=== PATIENT | male | born 1950 | race Caucasian/White ===

== ENCOUNTER 2023-04-10 15:04 | Emergency (ER) | payer MEDICARE, OTHER ==
[2023-04-10] MEDS ORDERED: ceFAZolin 1 GM in Sodium Chloride 0.9% 50 ML IV ONE (15:31)
[2023-04-10] MEDS ORDERED: Sodium Chloride 0.9% 10 ML Syringe FLUSH PRN (15:31)
[2023-04-10] MEDS ORDERED: Naloxone 0.4 MG/ML SDV IVPUSH PRN (15:33)
[2023-04-10] MEDS ORDERED: HYDROmorphone 0.5 MG/0.5 ML Syringe IVPUSH ONE (15:33)
[2023-04-10] MEDS ORDERED: Sodium Chloride 0.9% 500 ML IV ONE (15:42)
[2023-04-10 15:44] LABS: BASOPHILS ABSOLUTE AUTO 0.07 K/uL (0.00-0.10); BASOPHILS PERCENT AUTO 0.9 % (0.1-1.3); EOSINOPHILS ABSOLUTE AUTO 0.22 K/uL (0.00-0.40); EOSINOPHILS PERCENT AUTO 2.7 % (0.0-5.4); HEMATOCRIT 37.2 % (38.4-49.7); HEMOGLOBIN 12.6 g/dL (12.9-16.9); IMMATURE GRAN PERCENT AUTO 0.2 % (0.0-0.7); LYMPHOCYTES ABSOLUTE AUTO 1.88 K/uL (0.8-3.3); LYMPHOCYTES PERCENT AUTO 23.2 % (11.4-47.7); MEAN CORPUSCULAR HEMOGLOBIN 29.8 pg (31.6-35.5); MEAN CORPUSCULAR HGB CONC 33.9 g/dL (31.6-35.5); MEAN CORPUSCULAR VOLUME 87.9 fL (81.4-99.0); MONOCYTES ABSOLUTE AUTO 0.65 K/uL (0.20-0.90); NEUTROPHILS ABSOLUTE AUTO 5.28 K/uL (1.0-7.6); PLATELET COUNT,PLT 312 K/uL (130-375); RED BLOOD CELL COUNT 4.23 M/uL (4.14-5.76); WHITE BLOOD CELL COUNT,WBC 8.1 K/uL (3.2-11.0)
[2023-04-10 15:45] LABS: IMMATURE GRAN ABSOLUTE AUTO 0.02 K/uL (0.00-0.23)
[2023-04-10] MEDS ORDERED: Sodium Chloride 0.9% 1,000 ML IV SCH (15:45)
[2023-04-10] MEDS ORDERED: Diphtheria,Pertussis(Acell),Tetanus Vaccine 0.5 ML Syringe IM ONE (15:46)
[2023-04-10 15:59] LABS: CALCIUM 8.8 mg/dL (8.5-10.1); CREATININE 1.4 mg/dL (0.8-1.3); EST CRCL DRUG DOSING (CG) 53.55 mL/min; POTASSIUM,K 4.6 mmol/L (3.6-5.2)
[2023-04-10 16:00] LABS: ANION GAP 16.6 mmol/L (5.0-14.0)
== END 2023-04-10 17:30 | disposition home or self-care (01) ==
LOC: JP.ED 15:04
DX: S68.119A Complete traumatic metacarpophalangeal amputation of unspecified finger, initial encounter (principal); Z88.0 Allergy status to penicillin; X58.XXXA Exposure to other specified factors, initial encounter
CPT/HCPCS: 36415; 73140; 80048; 85025; 90471; 90715; 93005; 96365; 96375; 99284; J0690; J1170; J3490; J7030